=== PATIENT | male | born 1955 | race Caucasian/White ===

== ENCOUNTER → 2016-08-29 | Outpatient (CLI) | payer MEDICARE, BC ==
[~2016-08-29] MED LIST: ARICEPT10 MG PO; ASPIRIN LO-DOSE81 MG PO; ATORVASTATIN CA80 MG PO; FEOSOL325 MG PO; GLUCOPHAGE1000 MG PO; GLUCOTROL XL2.5 MG PO; KEPPRA1000 MG PO; LOPID600 MG PO; LOVASTATIN10 MG PO; MAG-OX-400(241400 MG PO; PRINIVIL OR ZES10 MG PO
== END | disposition disaster alternative care site (69) ==
LOC: GRAD 13:50
DX: C71.5 Malignant neoplasm of cerebral ventricle (principal); Z98.890 Other specified postprocedural states
CPT/HCPCS: A9577

== ENCOUNTER 2016-11-07 16:38 | Inpatient (IN) | payer MEDICARE, BC ==
[~2016-11-07] VITALS: Ht 172.7 cm; Wt 91.9 kg
--- NOTE | ~2016-11-07 | HP ---
PATIENT'S NAME: BOSSMAN SOUZA [facility] AGE: 61 Y [address] ROOM: [place] [address] LOCATION: [facility] ADMIT DATE: 11/07/2016 History & Physical DISCHARGE DATE: FAMILY PHYSICIAN: Torito Levine PA-C ATTENDING PHYSICIAN: Sydni ZARATE DATE OF SERVICE: CHIEF COMPLAINT: Aphasia. HISTORY OF PRESENT ILLNESS: The patient is a 61-year-old male whose history is provided by his . 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 The patient was at his baseline state of health at a regular card game where he was noted to be considerably more aphasic than normal and had some difficulty with coordinating both hands. It is unclear if he had any other symptoms but apparently his behavior was quite outside of his normal. He was urgently taken to the emergency room where he was evaluated by Teleneurology and has received tPA. At this point, the patient is in the Intensive Care Unit. Upon my evaluation, the patient is alert and oriented times maybe one, though he is still having significant aphasia and is not appropriate in his expression as per his . He is only requesting to go to sleep and volunteers no other symptoms. Of note, the patient was on Depakote and Keppra for his seizures for a long period of time but had his Depakote discontinued by his neurologist approximately 1 month ago. Apparently, the patient had a similar episode though in considerably less intensity and duration several weeks before discontinuation of his Depakote. REVIEW OF SYSTEMS: At this point, the patient denies any shortness of breath, chest pain, nausea, vomiting, or diarrhea. All systems have been reviewed and negative aside from pertinent positives mentioned above. PAST MEDICAL HISTORY: As reported by his is, 1. Qee-cyldibf-obfirxidj diabetes. 2. Essential hypertension. 3. History of seizures. 4. Brain tumor, status post resection. 5. She also reports that the patient may have had a "small stroke" PATIENT'S NAME: BOSSMAN SOUZA [facility] AGE: 61 Y [address] ROOM: [place] [address] LOCATION: [facility] ADMIT DATE: 11/07/2016 History & Physical DISCHARGE DATE: FAMILY PHYSICIAN: Torito Levine PA-C ATTENDING PHYSICIAN: Sydni ZARATE associated with his brain tumor back in 2001. FAMILY HISTORY: Reviewed and is noncontributory due to complicated medical history. SOCIAL HISTORY: Negative for any toxic habits. MEDICATIONS: Full list of medications is being compiled, but the patient is on 1. Metformin. 2. Lisinopril. 3. Keppra. PHYSICAL EXAMINATION: VITAL SIGNS: Blood pressure is 120/60, heart rate is 76, saturating 94% on room air, afebrile. GENERAL: Appears well-developed, well-nourished, elderly male, quite sleepy but arousable though not for long period of time. NEUROLOGIC: Reveals just a general aphasia and dysarthria, but no other focal neurological deficits. EYES: Pupils are equal and reactive to light. LYMPHATIC: No cervical lymphadenopathy. ENDOCRINE: No thyromegaly. LUNGS: Clear to auscultation bilaterally. HEART: Rate is regular with no appreciable murmurs, gallops, or rubs. GI: Abdomen is soft, nontender, and nondistended. : No costovertebral angle tenderness. VASCULAR: 2+ pedal pulses. MUSCULOSKELETAL: Unremarkable. SKIN: Warm and dry. PSYCHIATRIC: Cannot be assessed due to the patient's confusion. REVIEW OF STUDIES: CAT scan shows stable calcifications in multiple sites as well as encephalomalacia at the site of prior left parietal resection. Lab results are significant for blood sugars in 240s to 260s. ASSESSMENT AND PLAN: This is a 61-year-old male who has been admitted to the Intensive Care Unit for post tPA care and monitoring. We will order a standard stroke workup. We will check his hemoglobin A1c, lipids, 2-dimensional echocardiogram, carotid Dopplers, and an MRI. We will also request an EEG to be done as at this point the patient appears postictal to me. PATIENT'S NAME: BOSSMAN SOUZA [facility] AGE: 61 Y [address] ROOM: [address] [place], [place] [address] LOCATION: [facility] ADMIT DATE: 11/07/2016 History & Physical DISCHARGE DATE: FAMILY PHYSICIAN: Torito Levine PA-C ATTENDING PHYSICIAN: Sydni ZARATE Cvz-jbtwyfj-zgfyibbhq diabetes. We will continue the patient on metformin and add additional agents as needed. History of seizures. At this point, we will continue him on his current Keppra dose and request Neurology followup. Additional management will depend on clinical course. Time dedicated to this patient's encounter is 35 minutes. MD GRACIE DUARTE/dale /[id number] D: [id number] T: [id number] HISTORY & PHYSICAL
--- NOTE | ~2016-11-07 | ECHO ---
Transthoracic Echocardiography Report (TTE) Demographics Patient Name BOSSMAN SOUZA Date of Study 11/08/2016 Patient Number [id number] Visit Number [id number] Date of 1955 Room Number G6202 Gender Male Number Age 61 year(s) Referring Ace Troy Copper Etcher No Reyes, Physician RT,RVT,RDCS Physician Interpreting Paul Salgado MD Shrinker Physician Supervising Ordering Ace Troy MD/MLP Physician Nurse Stress Workforce Advisor Conclusions Contractility Score Summary Normal Left Ventricular contractility was noted. Summary Normal LV/RV size and systolic function. The estimated left ventricular ejection fraction is 65-70%. Mild concentric left ventricular hypertrophy. The aortic root appears mildly dilated. The maximum diameter measures 3.9 cm. No significant valvular abnormalities. Procedure Type of Study TTE procedure:2D Echocardiogram. Procedure Date Date: 11/08/2016 Start: 07:57 AM Study Location: Inpatient Portable Technical Quality: Good visualization Indications:CVA. Appropriate Use Criteria: 9 Patient Status: Routine HR: 59 bpm BP: 136/74 mmHg M-Mode/2D Measurements LV Diastolic Dimension: 4.28 cm LV Systolic Dimension: 2.6 cm LV Septum Diastolic: 1.02 cm LV PW Diastolic: 1.26 cm AO Root Dimension: 3.9 cm Cardiac Output: 4.71 l/min AV Cusp Separation: 1.9 cm RV Diastolic Dimension: 3.18 cm EF Estimated: 70 % LVOT: 2.2 cm MV EPSS: 0.5 cm LVOT VTI: 21 cm LV Stroke volume: 79.79 ml Doppler Measurements AV Peak Velocity: 1.14 m/s MV Peak E-Wave: 0.72 m/s AV Peak Gradient: 5.2 mmHg MV Peak A-Wave: 0.59 m/s AV Mean Gradient: 2 mmHg MV E/A Ratio: 1.21 LVOT Peak Velocity: 1.07 m/s MV P1/2t: 61 msec TR Gradient:23.81 mmHg PV Peak Velocity: 0.92 m/s Estimated RAP:10 mmHg PV Peak Gradient: 3.42 mmHg Estimated RVSP: 34 mmHg Estimated PASP: 33.81 mmHg E' Septal Velocity: 0.08 m/s A' Septal Velocity: 0.1 m/s MV E/E' Ratio: 9.5 Findings Left Ventricle Mild concentric left ventricular hypertrophy. Diastolic assessment reveals normal relaxation. Right Ventricle Normal right ventricle structure and function. Left Atrium Normal left atrial size. Right Atrium Normal right atrial size. IVC imaging is consistent with normal RA pressures. Mitral Valve Normal mitral valve structure and function. Aortic Valve Normal aortic valve structure and function. Tricuspid Valve TV is grossly normal. The pulmonary pressure (RVSP) is 34 mmHg. Pulmonic Valve Normal pulmonic valve structure and function. Pericardial Effusion No evidence of pericardial effusion. Miscellaneous The aortic root appears mildly dilated. The maximum diameter measures 3.9 cm. Pleural Effusion No evidence of pleural effusion. Contractility Score LV regional wall motion:(0-Non visualized 1-Normal 2-Hypokinesis 3-Akinesis 4-Dyskinesis 5-Aneurysm) Signature dtt: JUSTIN GOLD dtd: 11/08/16 0757 Physician Self Edit
--- NOTE | ~2016-11-07 | NDGEN ---
PATIENT'S NAME: BOSSMAN SOUZA [facility] AGE: 61 Y [address] ROOM: [place] [address] LOCATION: GICU ADMIT DATE: 11/08/2016 Neurodiagnostics DISCHARGE DATE: FAMILY PHYSICIAN: Torito Levine PA-C ATTENDING PHYSICIAN: Sydni ZARATE PROCEDURE: ELECTROENCEPHALOGRAM DATE OF PROCEDURE: TEST: TECH: CLINICAL DIAGNOSIS: DURATION OF EE minutes. REASON FOR EEG: Stroke. CLINICAL HISTORY: The patient is a 61-year-old male with past medical history of a brain tumor removed 15 years ago and has history of residual aphasia as well as seizures. The patient had increase in aphasia. EEG FINDINGS: Patient is awake for majority of the EEG during the awake portions of the EEG. Asymmetry between the right and left hemisphere is seen with right hemisphere being more slow when compared to the left. A background of about 8 hertz is seen in the posterior head regions in the left hemisphere. Activation procedures included photic stimulation between 3-30 hertz, which did not show any abnormalities. CLASSIFICATION:Abnormal III; awake, drowsy, 10/20 scalp electrodes. 1. Continuous slow, lateralized right hemisphere. IMPRESSION: This EEG shows evidence of underlying cortical dysfunction in the right hemisphere. No epileptiform discharges or EEG seizures were seen during this recording. RICCI MONSALVE MD WALESKA/modl PATIENT'S NAME: BOSSMAN SOUZA [facility] AGE: 61 Y [address] ROOM: [place] [address] LOCATION: GI ADMIT DATE: 11/08/2016 Neurodiagnostics DISCHARGE DATE: FAMILY PHYSICIAN: Torito Levine PA-C ATTENDING PHYSICIAN: Sydni ZARATE /[id number] dtt: 11/10/16 1532 , RICCI MONSALVE dtd: 11/08/16 [id number]
--- NOTE | ~2016-11-07 | CON ---
PATIENT'S NAME: BOSSMAN BARTON [facility] AGE: 61 Y [address] ROOM: [address] [place], [place] [address] LOCATION: GICU ADMIT DATE: 11/07/2016 Consultation DISCHARGE DATE: FAMILY PHYSICIAN: Torito Levine PA-C ATTENDING PHYSICIAN: Sydni ZARATE DATE OF CONSULTATION: 11/07/2016 TELENEUROLOGY CONSULTATION SERVICE NOTE REASON FOR CONSULTATION: Stroke alert. HISTORY OF PRESENT ILLNESS: Mr. Barton is a pleasant 61-year-old gentleman with a past medical history of hypertension, hyperlipidemia, seizure disorder, and brain tumor, that was first resected in 1997 and then a second time in 2001. Over the course of the last 15 years, the patient has had stable MRIs and CAT scans and has consistently followed with a neurologist. Further, he is on Keppra and has not had any seizures in several years. He had been stable enough to decrease and eliminate dual anti-epileptic medications. I was able to stop his valproic acid. Today to the emergency room, Bossman presents with isolated aphasia and mild right hemiparesis. He was playing cards with his friends between 2:30 and 3 o'clock when they noted that he became clumsy on the right side and could not speak. He went across the street to see his who then again noted the symptoms and called EMS. He has had one similar episode of this on October 03 of this year, that lasted less than 1 hour and was helped by a bolus of magnesium in an urgent care center. The patient was able to drive to the urgent care center, get his bolus of magnesium, and then drive home without any residual deficits. He does take aspirin on a daily basis. Head CT was performed in the emergency department and showed a stable- appearing posterior parietooccipital encephalomalacia from the prior resection. No bleeding, acute stroke or hemorrhage or expansion of the tumor was noted. PHYSICAL EXAMINATION: An NIH stroke scale was performed and is as follows. 1. Level of consciousness: Alert and keenly responsive. He is unable to answer questions on month and age, but he is able to perform the commands and squeezes hands. 2. Normal ocular movements. 3. No visual field loss. 4. Normal facial symmetry. 5. No drift in the upper extremities. 6. No drift in the lower extremities. PATIENT'S NAME: BOSSMAN BARTON [facility] AGE: 61 Y [address] ROOM: [place] [address] LOCATION: [facility] ADMIT DATE: 11/07/2016 Consultation DISCHARGE DATE: FAMILY PHYSICIAN: Torito Levine PA-C ATTENDING PHYSICIAN: Sydni ZARATE 7. No ataxia. 8. Normal sensation. 9. Severe aphasia. 10. . 11. No extinction for NIH Stroke Scale, total of 5. ASSESSMENT AND PLAN: Mr. Barton is a pleasant 61-year-old gentleman, who presents with isolated aphasia and resolving right hemiparesis. He has no contraindications to tPA. I have explained to the patient and his the nature of his condition and including the use of tPA fibrinolytic agent, and the benefits to be reasonably expected compared with alternative approaches. I have discussed the likelihood of major risks and complications of this procedure including brain damage, hemorrhage, paralysis, infection, blood transfusions, blood clots, and , and I have explained the risks of the above. After discussion, we have elected to go forward with tPA given that the family has agreed to it. tPA dose is a total of 85.7 mg with a bolus dose of 8.6 mg and a drip of 77.1 mg. He should have routine post tPA monitoring including neuro checks and blood pressure control during and after treatment. Blood pressure and NIH stroke scale should be checked approximately every 15 minutes for 2 hours, then q.30 minutes for 6 hours, and finally hourly for the next 16 hours. Blood pressure parameters should be kept under 180/105 with the use of either labetalol or nicardipine. Admission to the ICU for post tPA protocol is recommended along with a CT scan of the brain 24 hours after the medications. He should have additionally MRI of the brain without contrast to evaluate for acute stroke. He should be n.p.o. until a swallowing screen can be performed and passed. No antiplatelet agents or anticoagulants can be used within the first 24 hours. Evaluation by Rehab Medicine including physical, occupational, and speech therapy is recommended. A carotid ultrasound, echocardiogram, and telemonitoring are all recommended as is a neurology consult. Thank you very much for allowing us to participate in the care of this pleasant patient. We will follow along with you while he is in the hospital. MD DOE BENÍTEZ/dale /[id number] d: t: 11/08/16 1039, CONSULTATION REPORT
--- NOTE | ~2016-11-07 | CON ---
PATIENT'S NAME: BOSSMAN SOUZA [facility] AGE: 61 Y [address] ROOM: [place] [address] LOCATION: GICU ADMIT DATE: 11/08/2016 Consultation DISCHARGE DATE: FAMILY PHYSICIAN: Torito Levine PA-C ATTENDING PHYSICIAN: Sydni BELLO Consult for Dr. Bello, hospitalist. This 61-year-old gentleman with history of brain tumor, which has been resected about 15 years ago, had slight stroke before and which lead to a seizure disorder with slight residual aphasia. As per his , she noted when he was playing cards that he was much less coordinated with his hands and was also having considerable difficulty with his ability to comprehend and express. He was evaluated on in the ER and did receive tPA. He is at the present time alert, fairly able to orient himself, able to talk much better as per his than before and he was initially confuse also. He is known to be on Keppra for seizure disorder. Now, he is alert, oriented with cueing. VITAL SIGNS: Blood pressure 138/85, temperature 97.9, pulse 63, respirations rate 13. He is 5 feet 8 inches tall and weighs 94.3 kg. He still has difficulty and some slurring of speech and sometimes mixes the syllables of words. He can follow instructions fairly well. No facial droop. No neglect at the present time. Tongue and soft palate are moving symmetrical. Voice is clear and not wet. He can move bilateral upper and lower extremity with a muscle strength of about 4/5 throughout. Deep tendon reflexes are present and equal. Babinski is equivocal. He is okay with the control over his bowel. MEDICATIONS: He is on the following medications. 1. Mevacor. 2. Aricept. 3. Mag-ox. 4. Lisinopril. PATIENT'S NAME: BOSSMAN SOUZA [facility] AGE: 61 Y [address] ROOM: [place] [address] LOCATION: [facility] ADMIT DATE: 11/08/2016 Consultation DISCHARGE DATE: FAMILY PHYSICIAN: Torito Levine PA-C ATTENDING PHYSICIAN: Sydni BELLO 5. Lopid. 6. Ferrous sulfate. 7. Keppra. 8. NaCl 0.9%. 9. Labetalol. 10. Glucagon. 11. Dextrose. 12. Glucose. 13. Insulin aspart, moderate scale. 14. Tylenol. 15. Zofran. 16. Metformin. 17. Alteplase. ASSESSMENT AND PLAN: We will start him at the present time, on PT, OT, and Speech. He is not to drive until he is re-evaluated and is at the present time going to be bedside therapy, PT, OT, and Speech and to see how he progresses. If able to go home, I would like to follow on him in about 1-2 weeks. Meanwhile, he is not to operate any mechanical device and/or drive. All the above was explained to his in detail. She verbalized understanding and agreement. However, if he is not able to go home. I will be happy to re-evaluate for rehab admission. NA SHAHID MD WMS/modl /[id number] d: 11/08/16 1845 t: 11/09/16 0819, CONSULTATION REPORT
--- NOTE | ~2016-11-07 | ER ---
PATIENT'S NAME: BOSSMAN SOUZA [facility] AGE: 61 Y [address] ROOM: [place] [address] LOCATION: [facility] ADMIT DATE: 11/07/2016 ER/Outpatient Report DISCHARGE DATE: FAMILY PHYSICIAN: Torito Levine PA-C ATTENDING PHYSICIAN: Sydni ZARATE Time Of Arrival: 1638 hours. Time of Exam: 1638 hours. CHIEF COMPLAINT: Possible stroke. HISTORY OF PRESENT ILLNESS: The patient arrived per [place] ambulance accompanied by [facility]. He has an IV in his right hand, and he was on 3 L of O2. EMS report at 3 o'clock this afternoon. The patient was playing cards when he started having issues with dexterity and became extremely aphasic. The patient has had a brain tumor removed in the past and has problems with aphasia anyway but became much more prevalent and worse around 3 o'clock this afternoon. The patient's reports he has not been feeling ill. Prior to today, he has not had a cough, cold, congestion, or runny nose. He has not been complaining of chest pain or chest discomfort; has not complained of a headache. When asked the patient has a headache now, he shakes his head no. He follows commands but he is not able to verbalize words. ALLERGIES: PENICILLIN, DILANTIN. CURRENT MEDICATIONS: On his chart and reviewed by me. reports that the Depakote that he was on got stopped approximately 6 weeks ago by his neurologist. PAST MEDICAL HISTORY: Tsh-ynrfbuo-klsfumcln diabetes, hypertension, increased cholesterol, seizures, brain tumor. PAST SURGICAL HISTORY: Surgeries include removal of the brain tumor in 1998 and again in 2001. SOCIAL HISTORY: Lives in [place] with his . Denies use of tobacco, drugs, or alcohol. REVIEW OF SYSTEMS: All negative other than those mentioned in the HPI. PATIENT'S NAME: BOSSMAN SOUZA [facility] AGE: 61 Y [address] ROOM: [place] [address] LOCATION: [facility] ADMIT DATE: 11/07/2016 ER/Outpatient Report DISCHARGE DATE: FAMILY PHYSICIAN: Torito Levine PA-C ATTENDING PHYSICIAN: Sydni ZARATE PHYSICAL EXAMINATION: GENERAL: He is awake and alert. He attempts to verbalize needs but is unable to. Stroke Alert was called. His initial stroke scale is 5+. Dr. Winter was consulted. HEENT: Pupils were equal and reactive to light. Extraocular movement is intact. He is able to smile. When he sticks out his tongue, it does tend to deviate to the left. NEUROLOGIC: He has unequal shoulder shrug. Decreased movement on the left. When his arm is out straight his right hand drops down. He does not have as much control of his right hand as he does his left hand. When doing heel-to- garza test, he has ataxia noted in both limbs per Dr. Winter. HEART: Regular rate and rhythm. LUNGS: Lung sounds are clear throughout. ABDOMEN: Soft, round, positive bowel sounds. EXTREMETIES: Positive peripheral pulses. Negative peripheral edema. LABORATORY DATA: Stroke lab work was completed. CBC is within normal limits. His Accu-Chek was 228, pro-time was 10.3 with an INR of 0.98. The patient is not on any kind of blood thinner. Renal panel shows a glucose of 248. BUN is 19 with a creatinine of 1.3 and GFR of 56. Troponin was negative. Valproic acid is less than 3. Keppra dose was drawn but will need to be sent out. Teleneurology was contacted. Dr. Iliana Rhodes was present. History was given. She examined the patient and talked with the family. She recommends tPA. Pharmacy orders were sent. The patient is to get tPA 85.7 mg total, 8.6 mg as a bolus and then a drip of 77.1 mg. The patient's family and himself agree to it. When asked if he wants the medicine, the patient verbalizes yes and was very easy to understand at that time. Dr. Andre was contacted regarding the patient. Vital signs remained stable. IMPRESSION: Aphasic stroke. PLAN: The patient to be placed in ICU. Hospitalist to follow. The patient and his family are aware of plan. CHONG MEDEROS APRN FOR MD TARUN SON/dale /[id number] d: 11/08/16 0134 t: 11/14/16 0931, OUTPATIENT REPORT
--- NOTE | ~2016-11-07 | ENPV ---
Carotid Duplex Study Demographics Patient Name BOSSMAN SOUZA Date of Study 11/08/2016 Patient Number [id number] Gender Male Date of 1955 Age 61 Visit Number [id number] Height 69 Accession Number [id number] Weight 207 Referring Ace Schmitz Physician Physician Physician Ordering Ace Troy Stationary Boiler Fireman Physician Rental Agent No Reyes, RT,RVT,RDCS Conclusions Summary TECHNIQUE: Duplex and color Doppler ultrasound assessment of the carotids and vertebrals and subclavians in standard fashion with image documentation. Findings: 1. The right carotid system shows no plaquing. Velocities and waveforms normal. 2. On the left there is mild calcific plaquing in the proximal ICA. Mild spectral broadening. Stenosis is in the 1-39% category. IMPRESSION: No significant carotid stenosis. Procedure Type of Study: Cerebral:Carotid, Carotid Doppler Bilateral. Indications for Study:CVA. Appropriate Use Criteria:9 Patient Status:Routine. Study Location:Inpatient Portable. Technical Quality:Good visualization. Velocities are measured in cm/s ; Diameters are measured in cm Carotid Right Measurements Carotid Left Measurements + +--------+--------+ + + + +--------+- -------+ + + !Location !PSV !EDV !Angle !%Stenosis ! !Location !PSV !E DV !Angle !%Stenosis ! + +--------+--------+ + + + +--------+- -------+ + + !Prox CCA !120 !24 !60 ! ! !Prox CCA !130 !2 3 !60 ! ! + +--------+--------+ + + + +--------+- -------+ + + !Dist CCA !61 !14 !60 ! ! !Dist CCA !66 !1 8 !60 ! ! + +--------+--------+ + + + +--------+- -------+ + + !Prox ICA !38 !12 !48 ! ! !Prox ICA !52 !1 7 !40 !1-39% ! + +--------+--------+ + + + +--------+- -------+ + + !Mid ICA !60 !23 !40 ! ! !Mid ICA !56 !1 7 !40 ! ! + +--------+--------+ + + + +--------+- -------+ + + !Dist ICA !61 !27 !34 ! ! !Dist ICA !66 !2 8 !40 ! ! + +--------+--------+ + + + +--------+- -------+ + + !Prox ECA !60 ! !48 ! ! !Prox ECA !48 ! !40 ! ! + +--------+--------+ + + + +--------+- -------+ + + !Vertebral !33 ! !60 ! ! !Vertebral !48 ! !60 ! ! + +--------+--------+ + + + +--------+- -------+ + + - There is antegrade vertebral flow noted on the right side. - There is antegrade verte bral flow noted on the left side. - Add'l Measurements:Subclavian PRV 81 cm/sICAPSV/CCAPSV - Add'l Measurements:Subcl veronika PRV 88 cm/sICAPSV/CCAPSV 0.51.ICAEDV/CCAEDV 1.16. 0.5.ICAEDV/CCAEDV 1.25. Impressions Right Impression Right vertebral antegrade flow. No significant plaque or stenosis seen. Left Impression Left vertebral antegrade flow. Mild calcific plaque at proximal ICA. Signature dtt: Darius Hicks dtd: 11/08/16 0819 Physician Self Edit
[2016-11-07 17:47] LABS: HEMATOCRIT 36.1 % (37.0-53.0); HEMOGLOBIN 12.2 g/dL (11.0-16.0); MCH 30.5 pg (27.0-34.0); MCHC 33.8 gm/dL (32.0-36.5); MCV 90.3 fl (83.0-98.0); MPV 10.5 fl (9.4-12.4); PLATELET COUNT 170 K/uL (150-450); RDW-CV 13.2 % (11.9-14.6); WBC 9.3 K/uL (4.0-11.0)
[2016-11-07 17:55] LABS: INR - (THERAPEUTIC) 0.98 (0.92-1.07); PROTIME 10.3 SECONDS (9.8-11.4); PTT 24 SECONDS (25-32)
[2016-11-07 18:00] LABS: ALBUMIN 4.3 gm/dL (3.5-5.0); ANION GAP 11.5 (10.0-19.0); CALCIUM 9.3 mg/dL (8.5-10.5); CREATININE 1.3 mg/dL (0.6-1.3); PHOSPHORUS 2.2 mg/dL (2.5-4.9); POTASSIUM 4.5 mMol/L (3.7-5.1)
[2016-11-07 18:21] LABS: ABSOLUTE NEUTROPHIL CT (ANC) 5.8 K/uL (1.4-9.0); BANDED NEUTROPHIL # 0.5 K/uL (0.0-0.1); BANDED NEUTROPHILS % 5 %; LYMPHOCYTE % 22 %; MONOCYTE # 1.4 K/uL (0.0-1.0); SEGMENTED NEUTROPHIL # 5.3 K/uL (1.4-9.0); SEGMENTED NEUTROPHIL % 57 %
--- NOTE | 2016-11-08 04:31 | NUR ---
Significant Event: PATIENT ADMIT TO FLOOR POST TPA FOR SUSPECTED STROKE. PT HAS PRIOR BRAIN MASS REMOVAL X2 WITH RESIDUAL APHASIA. PT CONTINUES TO HAVE APHASIA WITH GREATER DEFICIT THAN BASELINE, ALTHOUGH SPEECH IS IMPROVING. HEADACHE, TREATED WITH PRN TYLENOL X2, RELIEF NOTED. PUPILS EQUAL. EQUAL STRENGTH THROUGHOUT. PT DENIES NUMBNESS/TINGLING THROUGHOUT. NIHSS 7. AFEBRILE. LABETALOL GTT AVAILABLE IF SBP >180. CONTINUES ON ROOM AIR. VOID PER URINAL. NPO EXCEPT FOR SIPS WITH PILLS. PIV, SL. Follow up: MRI, EEG, CAROTID DOPPLER, ECHO TODAY PER TPA ORDERS
--- NOTE | 2016-11-08 08:16 | NUR ---
ROUTINE CONSULT FOR CVA NUTRITION ED NOTED. WILL COMPLETE PRIOR TO DISMISSAL.
[2016-11-08] MEDS ORDERED: LOPID600 MG PO (08:51)
[2016-11-08] MEDS ORDERED: GLUCOTROL XL2.5 MG PO (08:52)
[2016-11-08] MEDS ORDERED: PRINIVIL OR ZES10 MG PO (08:53)
[2016-11-08] MEDS ORDERED: ARICEPT10 MG PO (08:53)
[2016-11-08] MEDS ORDERED: GLUCOPHAGE1000 MG PO (08:53)
[2016-11-08] MEDS ORDERED: KEPPRA1000 MG PO (08:53)
[2016-11-08] MEDS ORDERED: MAG-OX-400(241400 MG PO (08:54)
[2016-11-08] MEDS ORDERED: LOVASTATIN10 MG PO (08:54)
[2016-11-08] MEDS ORDERED: ASPIRIN LO-DOSE81 MG PO (08:54)
[2016-11-08] MEDS ORDERED: FEOSOL325 MG PO (08:55)
[2016-11-08 10:54] LABS: MAGNESIUM 1.9 mg/dL (1.8-2.6)
--- NOTE | 2016-11-08 12:02 | NUR ---
Introduced self and role of care management to patient and his . They live in [place]. His states that he is able to do all his own ADL's. She states that even though his is aphasic he can make any needs known. They plan on returning home on discharge. They deny any needs at this time. Will continue to follow.
--- NOTE | 2016-11-08 13:42 | NUR ---
Significant Event: Alert, aphasic. PERRLA. Stroke scale a 5. AFebrile. Bedrest till 1824. EEG, echo, Carotid doppler and MRI done today. On RA. NPO except meds, speech evaluated swallowing. Voids per urinal. R) AC saline locked. Refused bath would like to shower this evening. AC/HS accuchecks. Zulema, RN to assume cares. Follow up: monitor.
--- NOTE | 2016-11-08 17:48 | NUR ---
Significant Event: NEURO: Only noted deficits mild aphasia and swallowing difficulty. Follow up: CT scan today at 1830.
--- NOTE | 2016-11-09 04:28 | NUR ---
Significant Event: Pt is alert and oriented x3. Aphasic at times. Pupils are equal and reactive. 24hr post TPA CT was clear. Pt moves all extremities spontaneously and to command. NIHSS score of 2. Denies any numbness or tingling. Ambluates with a 1 assist. Ambulates to the toilet, and to the shower. PIV in place. Changed to NTU status. Follow up: Continue to monitor
[2016-11-09 05:38] LABS: BASOPHIL % 0.1 %; EOSINOPHIL % 0.3 %; HEMATOCRIT 37.7 % (37.0-53.0); HEMOGLOBIN 12.5 g/dL (11.0-16.0); IMMATURE GRANULOCYTE # 0.2 K/uL (0.0-0.3); IMMATURE GRANULOCYTE % 1.5 %; LYMPHOCYTE # 2.2 K/uL (0.8-4.0); LYMPHOCYTE % 20.9 %; MCH 30.3 pg (27.0-34.0); MCHC 33.2 gm/dL (32.0-36.5); MCV 91.3 fl (83.0-98.0); MONOCYTE # 1.7 K/uL (0.0-1.0); MONOCYTE % 15.9 %; MPV 10.5 fl (9.4-12.4); NEUTROPHIL # (ANC) 6.4 K/uL (1.4-9.0); NEUTROPHIL % 61.3 %; NRBC % 0 /100WBC (0-0.00); PLATELET COUNT 184 K/uL (150-450); RBC 4.13 M/uL (3.50-5.50); RDW-CV 13.4 % (11.9-14.6); WBC 10.5 K/uL (4.0-11.0)
[2016-11-09 05:55] LABS: ANION GAP 15.4 (10.0-19.0); BLOOD UREA NITROGEN 27 mg/dL (6-24); CALCIUM 9.3 mg/dL (8.5-10.5); CHLORIDE 105 mMol/L (96-110); CO2 21 mMol/L (22-32); CREATININE 0.9 mg/dL (0.6-1.3); ESTIMATED GFR (MDRD EQUATION) > 60; POTASSIUM 4.4 mMol/L (3.7-5.1); SODIUM 137 mMol/L (135-145)
[2016-11-09] MEDS ORDERED: ATORVASTATIN CA80 MG PO (13:05)
--- NOTE | 2016-11-09 13:19 | NUR ---
POST STROKE DIET ED COMPLETED W/PT AND PT'S . PT IS A DIABETIC; FROM PT'S 'S REPORT PT DOES NOT FOLLOW HIS DIET. HE EATS M&Ms AND OREOS; PT DOES CONFIRM THIS. WHEN ASKED ABOUT HIS DIABETIC DIET, PT SAID,"I KNOW WHAT I AM SUPPOSED TO DO." WENT OVER DIABETIC DIET INFORMATION, ALONG WITH INCORPORATING LOW SODIUM. PT WAS NOT RECEPTIVE, BUT PT'S WAS. PROVIDED DIABETES BOOKLET, COUNT YOUR CARBS BOOKLET, AND OUPT RD INFORMATION. ENCOURAGED PT AND PT'S TO SEE AN OUTPT RD.
--- NOTE | 2016-11-09 13:45 | NUR ---
ORDERS RECEIVED TO DISMISS PATIENT TO HOME. DISMISSAL INSTRUCTIONS WERE REVIEWED WITH THE PATIENT AND HIS BY THE SUPERVISOR [employer]. IVY EDUCATIONAL HANDOUTS WERE REVIEWED WITH THE PATIENT AND HIS . THEY BOTH VERBALIZED UNDERSTANDING OF INSTRUCTIONS AND EDUCATION PROVIDED. PATIENT AMBULATED TO [facility] WITH NURSING STAFF WHERE VEHICLE WAS WAITING.
== END 2016-11-09 13:47 | disposition disaster alternative care site (69) | DRG 92 ==
LOC: GMED 16:38 → GICU 18:51
PROVIDERS: Family Medicine; Nurse Practitioner Family; ADMIT Internal Medicine
DX: R47.01 Aphasia (principal); G81.91 Hemiplegia, unspecified affecting right dominant side; G93.89 Other specified disorders of brain; G40.909 Epilepsy, unspecified, not intractable, without status epilepticus; R13.10 Dysphagia, unspecified; I10 Essential (primary) hypertension; E11.9 Type 2 diabetes mellitus without complications; E78.5 Hyperlipidemia, unspecified; Z86.011 Personal history of benign neoplasm of the brain; Z79.84 Long term (current) use of oral hypoglycemic drugs
CPT/HCPCS: A9577; G0378; J2405; J2997; J7040

== ENCOUNTER → 2016-11-07 | Outpatient (CLI) | payer MEDICARE, BC | END | disposition disaster alternative care site (69) | LOC: GAMB 16:08 | DX: I63.9 Cerebral infarction, unspecified (principal); Z85.841 Personal history of malignant neoplasm of brain ==

== ENCOUNTER → 2016-11-20 | Outpatient (CLI) | payer MEDICARE, BC ==
--- NOTE | ~2016-11-20 | NDGEN ---
PATIENT'S NAME: BOSSMAN BARTON [facility] AGE: 61 Y [address] ROOM: [place] [address] LOCATION: [facility] ADMIT DATE: 11/20/2016 [facility] DISCHARGE DATE: FAMILY PHYSICIAN: Torito Levine PA-C ATTENDING PHYSICIAN: TEENA PULIDO PROCEDURE: ELECTROENCEPHALOGRAM DATE OF PROCEDURE: 11/20/2016 TIME: 8:30 a.m. FINDINGS: Mr. 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 He recently presented on November 07 with what sounded like aphasia and right upper extremity numbness. He received tPA. The patient had a prior generalized seizure, but it is a possibility that he was having some background seizure activity that may have caused his symptoms. This was a 20-lead EEG which was done with photic stimulation. The general background rhythm was symmetric in both hemispheres. It showed a background rhythm of between 9 to 12 Hz alpha rhythm with normal amplitudes between 25 to 70 microvolts. There was occasional blink artifact, but otherwise this was a good study. Again, no asymmetry was seen even though the patient has a resected mass in the left temporal region. There were no epileptiform features seen, and no seizures were recorded. IMPRESSION: Normal EEG. MD KINJAL MADRIGAL/dale /[id number] dtt: 12/11/16 0820 TESS JASON R. dtd: 11/20/16 1644
== END | disposition disaster alternative care site (69) ==
LOC: GNEU 07:38
DX: R56.9 Unspecified convulsions (principal)